=== PATIENT | male | born 1975 | race Caucasian/White ===

== ENCOUNTER 2019-08-18 05:30 | Day surgery (SDC) | payer MEDICAID ==
[2019-08-13 09:20] LABS: HEMATOCRIT 46.8 % (42.0-54.0); HEMOGLOBIN 16.2 g/dL (13.5-17.5); MCH 32.3 pg (26.0-34.0); MCHC 34.6 g/dL (31.0-37.0); MCV 93.2 fL (80.0-100.0); MEAN PLATELET VOLUME 9.4 fL (7.4-10.4); RBC 5.02 10x6/uL (4.20-6.10); RDW 13.1 % (11.5-14.5); WBC 8.2 10x3/uL (4.8-10.8)
[~2019-08-18] VITALS: Ht 165.1 cm; Wt 81.6 kg
[~2019-08-18 05:30] MED LIST: NORVASC5 MG PO
[2019-08-18 06:15] VITALS: BP 145/89; Ht 165.1 cm; Wt 81.6 kg
[2019-08-18] MEDS ORDERED: PERCOCET 10-321 EAC1 PO (08:44)
--- NOTE | 2019-08-18 09:17 | NUR ---
0907 RECEIVED PATIENT WITH DEEP EVEN RESPIRATATIONS AND OPA INTACT
--- NOTE | 2019-08-18 09:23 | NUR ---
0923 PATIENT AROUSES FOLLOWS COMMANDS. OPA DISCONTINUED
--- NOTE | 2019-08-18 11:34 | OP ---
PATIENT NAME: RADHA JEONG MEDICAL RECORD: [id number] :79 LOCATION:D.OPS ADMISSION DATE: SURGEON: NIRALI OLSEN MD DATE OF OPERATION: 08/18/2019 PREOPERATIVE DIAGNOSIS: Chronic distal biceps tendon rupture. POSTOPERATIVE DIAGNOSIS: Chronic distal biceps tendon rupture. PROCEDURE: Distal biceps tendon repair. SURGEON: Nirali Olsen MD ANESTHESIA: General. VOUCHER EXAMINER: Mateo Dillon APN INTRAOPERATIVE COMPLICATIONS: None. SUMMARY OF PATHOLOGIC FINDINGS: The patient did indeed have a distal biceps rupture, chronic; however, the distal aspect of the biceps tendon had scarred into lacertus fibrosus making it relatively easy to repair, although somewhat foreshortened. I was able to get it back intraosseously at the radial tuberosity. The [place] TightRope Endobutton technique was utilized. OPERATIVE SUMMARY IN DETAIL: After obtaining the appropriate preoperative orthopedic surgery consent as well as anesthetic consultation, evaluation and clearance, the patient was brought to the operating room and placed on the operating table in a supine position. After general laryngeal mask airway was administered, tourniquet was placed on the proximal aspect of the right upper extremity. Right upper extremity was prepped and draped in routine sterile fashion. The arm was elevated and exsanguinated, tourniquet was inflated to 350 mmHg. Curvilinear incision was made about the antecubital fossa in keeping with Stu's volar approach. Dissection was then carried gently down. The cephalic vein was identified and spared to the case. It was retracted and not sacrificed. The lacertus fibrosus was dissected down on and the tendon was then seen within the bone of the lacertus fibrosus. This dissection was carried as distal as possible to create the bone of the lacertus fibrosus -- [place] biceps tendon bundle. This was then stitched with the [employer] FiberLoop from the musculotendinous junction to the very end. At this point, the TightRope button was then applied. Dissection was then carried down at brachialis with excellent visualization directly on the radial tuberosity. Briggs tip was used for bicortical penetration followed by reaming unicortically with a size 8, which was at the distal aspect of the tendon measured. The button was deployed, transcortically flipped and then the tendon was sutured intraosseously, so it was pulled down intraosseously. This was tied multiple times. The elbow was gently ranged. Wound was then irrigated and closed by Mateo Dillon with #1 Vicryl followed by 4-0 Prolene. Sterile dressings were applied. Tourniquet was deflated. Prior to final closure to stop all bleeding, Thierry was deployed. Having completed the final closure, pressure dressing was applied and then a posterior splint was applied. After the splint was allowed to harden, the patient was put in a sling, awakened and taken to recovery room in stable condition. All final needle and sponge counts were correct. TRANSINT:[id number] Voice Confirmation ID: [id number] DOCUMENT ID: [id number] OPERATIVE REPORT [id number] RADHA JEONG MD, NIRALI [place] at 1134 CC: [id number] DICTATION DATE: 08/18/19 0849 BULK FILLER: 08/18/19 1131 [address] [id number] [place] [id number]
== END 2019-08-18 11:55 | disposition home or self-care (01) ==
LOC: D.OPS 05:30 → D.PAN 07:30 → D.OPS 08:45 → D.PAN 09:30 → D.OPS 09:30
PROVIDERS: Anesthesiology; ATTEND Orthopaedic Surgery
DX: S46.219A Strain of muscle, fascia and tendon of other parts of biceps, unspecified arm, initial encounter (principal)